=== PATIENT | male | born 1950 | race Caucasian/White ===

== ENCOUNTER → 2018-03-20 | Outpatient (CLI) | payer BC, MEDICARE ==
[~2018-03-20] MED LIST: IOPAMIDOL-370 100 ML VIAL IV ONE
== END | disposition home or self-care (01) ==
LOC: OIH 09:34
PROVIDERS: ATTEND Internal Medicine Cardiovascular Disease
DX: I71.2 Thoracic aortic aneurysm, without rupture (principal); M47.895 Other spondylosis, thoracolumbar region; K44.9 Diaphragmatic hernia without obstruction or gangrene; I25.10 Atherosclerotic heart disease of native coronary artery without angina pectoris; I51.7 Cardiomegaly
CPT/HCPCS: 71275; Q9967

== ENCOUNTER → 2020-04-09 | Outpatient (CLI) | payer BC | END | disposition home or self-care (01) | LOC: RAH 14:10 | PROVIDERS: ATTEND Family Medicine | DX: R60.0 Localized edema (principal) | CPT/HCPCS: 93970 ==

== ENCOUNTER → 2023-09-15 | Outpatient (CLI) | payer MEDICARE ==
[~2023-09-15] MED LIST changes: +AMLO-257 PO; +CARV12.511 PO; -IOPAMIDOL-370 100 ML VIAL IV ONE; +RAMI10CA69 PO; +REPA0.5T6 PO; +ROSU20TA73 PO; +SITA1TAB6 PO; +TRIA1TAB3 PO
== END | disposition home or self-care (01) ==
LOC: RAH 12:45
PROVIDERS: ATTEND Family Medicine
DX: S46.011A Strain of muscle(s) and tendon(s) of the rotator cuff of right shoulder, initial encounter (principal); S43.491A Other sprain of right shoulder joint, initial encounter; S40.011A Contusion of right shoulder, initial encounter; M25.411 Effusion, right shoulder; M19.011 Primary osteoarthritis, right shoulder; X58.XXXA Exposure to other specified factors, initial encounter; Y93.89 Activity, other specified; Y92.89 Other specified places as the place of occurrence of the external cause; Y99.8 Other external cause status
CPT/HCPCS: 73221

== ENCOUNTER → 2024-09-03 | Outpatient (CLI) | payer MEDICARE ==
[~2024-09-03] MED LIST changes: +IOHEXOL 350 MG/ML 100ML INFUS..BTL IV ONE; -RAMI10CA69 PO; +RAMI10CA76 PO; +REPA0.5T12 PO; -REPA0.5T6 PO; -ROSU20TA73 PO; +ROSU20TA98 PO
--- NOTE | 2024-09-03 11:13 | HMCIMG ---
CT ANGIO CHEST/ABD/PELVIS HISTORY: Aortic aneurysm COMPARISON: None TECHNIQUE: CT angiography of the chest , abdomen and pelvis was performed. The study was performed using angiographic technique with maximum intensity projection reconstruction images. Patient was given 100 cc of Omnipaque through intravenous route. FINDINGS: No CT evidence of filling defect is seen to suggest pulmonary embolus. There is ascending thoracic aortic aneurysm measuring 4.5 x [address] evidence of aortic dissection is seen. No evidence of parenchymal disease is seen. No CT evidence of pleural effusion or pericardial effusion is seen. The heart is enlarged. Coronary arterial calcifications are seen. The liver, spleen, adrenal glands and pancreas are unremarkable. There is no evidence of hydronephrosis bilaterally. No evidence of renal stone is seen. There is diverticulosis. Fecal material is seen in the colon. There are normal size retroperitoneal and mesenteric lymph nodes. No ascites is seen. Atherosclerotic changes are present. Postop changes are seen of the lower lumbar spine with laminectomy changes. There is diffuse atherosclerotic disease. Right common iliac artery measures 12 mm. Left common iliac artery measures 13 mm. These are mildly dilated. No evidence of abdominal aortic aneurysm is seen. The celiac, superior mesenteric and bilateral renal arteries are grossly patent. The visualized portion of the iliac and femoral arterial systems are also grossly patent. Pelvic sidewalls are symmetric bilaterally. Bladder is well distended without wall thickening. IMPRESSION: 1. There is ascending thoracic aortic aneurysm measuring 4.5 x 4.3 cm. Atherosclerosis. Otherwise unremarkable CT angiogram study. CT was performed with one or more following dose reduction techniques: automated exposure control, adjustment of the mA and kv according to patient's size, or use of a iterative reconstruction technique.
== END | disposition home or self-care (01) ==
LOC: RAH 07:30
PROVIDERS: ATTEND Internal Medicine Cardiovascular Disease
DX: I71.21 Aneurysm of the ascending aorta, without rupture (principal); I70.8 Atherosclerosis of other arteries; I51.7 Cardiomegaly; I25.10 Atherosclerotic heart disease of native coronary artery without angina pectoris; I72.3 Aneurysm of iliac artery; N32.89 Other specified disorders of bladder
CPT/HCPCS: 74174; 71275; Q9967

== ENCOUNTER → 2025-06-10 | Outpatient (CLI) | payer MEDICARE ==
[~2025-06-10] MED LIST changes: -IOHEXOL 350 MG/ML 100ML INFUS..BTL IV ONE
--- NOTE | 2025-06-12 01:42 | HMCIMG ---
EXAM: MR Cervical Spine without Intravenous Contrast. CLINICAL HISTORY: radiculopathy esophageal region. TECHNIQUE: Magnetic resonance images of the cervical spine without intravenous contrast in multiple planes. CONTRAST: Without. COMPARISON: None provided. FINDINGS: VERTEBRAE: No acute fracture or focal osseous lesion. Generalized marrow signal is unremarkable. Postoperative status at C3 through C7 levels is visualized with appropriately positioned hardware. There is grade I degenerative spondylolisthesis of C7 over T1 without spondylolysis. ALIGNMENT: The cervical lordosis is reduced. There is grade I degenerative spondylolisthesis of C7 over T1 without spondylolysis. SPINAL CORD: The cervical cord is unremarkable in morphology and signal intensity. No cord edema, myelomalacia. DISCS/DEGENERATIVE CHANGES: The disc spaces at the operative levels (C3-C7) are reduced in height. The rest of the disc levels in the cervical spine demonstrate desiccative changes in the discs with generalized reduction of the height. C2-C3: A small central and bilateral foraminal, left greater than right, disc osteophyte complex causing neural foraminal narrowing with left exiting C3 nerve root compression. Moderate uncovertebral and facet joint hypertrophy contributing to the neural foraminal stenosis. C7-T1: Moderate to severe bilateral facet arthropathy and mild bilateral uncovertebral osteophytes. 3-4 mm sized pseudobulge of the disc contributing to bilateral grade II neural foraminal narrowing, without definite exiting nerve root compression. PARASPINAL SOFT TISSUES: Paravertebral soft tissues are unremarkable. Visualized Posterior Fossa Structures: The visualized posterior fossa structures are unremarkable. IMPRESSION: 1. Cervical spondylosis with multilevel degenerative changes. 2. Postoperative changes at C3C7 with appropriately positioned ACDF hardware. 3. C2-C3 disc osteophyte complex with left exiting C3 nerve root compression. 4. Grade I degenerative spondylolisthesis of C7 on T1 without spondylolysis. 5. No cord compression, myelomalacia. /[place]
== END | disposition home or self-care (01) ==
LOC: RAH 10:00
PROVIDERS: ATTEND Student in an Organized Health Care Education/Training Program
DX: M47.22 Other spondylosis with radiculopathy, cervical region (principal); M25.78 Osteophyte, vertebrae; M43.12 Spondylolisthesis, cervical region; G95.89 Other specified diseases of spinal cord; M47.813 Spondylosis without myelopathy or radiculopathy, cervicothoracic region; M48.03 Spinal stenosis, cervicothoracic region; M50.33 Other cervical disc degeneration, cervicothoracic region; M43.13 Spondylolisthesis, cervicothoracic region; Z98.1 Arthrodesis status
CPT/HCPCS: 72141